=== PATIENT | female | born 1970 | race Hispanic/Latino ===

== ENCOUNTER 2016-12-14 08:56 | Emergency (ER) | payer OTHER ==
[2016-12-14 08:57] VITALS: BMI 40.7
--- NOTE | 2016-12-14 09:28 | ED PDOC ---
Arrival/HPI - General Historian: Patient - History of Present Illness Time/Duration: < week Symptom Onset: Sudden Symptom Course: Intermittent Quality: Stabbing Severity Level: Mild Activities at Onset: Rest <Jenny Sykes - Last Filed: 12/14/16 13:01> <Blade Domingo - Last Filed: 12/14/16 17:21> - General Chief Complaint: Chest Pain Time Seen by Provider: 12/14/16 09:01 - History of Present Illness Narrative History of Present Illness (Text): 12/14/16 09:22 46F w/ PMH sig for HLD and HTN, presents with pain under her left breast x 2 days. Pt was driving when pain started. Pain as constant, variable intensity, sharp/stabbing, radiates left jaw and shoulder. Admits to SOB, diaphoresis, diarrhea x 2 days. Slightly alleviated by Tylenol and lying flat, aggravated by deep inspiration. Denies F & C, N & V, ab pain, back pain, recent URI, other complaints. PMH: HLD, HTN, fibroids PSH: Cholecystectomy All: NKDA SH: Admits to drinking EtOH 1x per week. Denies any tobacco or illicit drug use PMD: Neela (Jenny Sykes) Past Medical History - Provider Review Nursing Documentation Reviewed: Yes - Infectious Disease Hx of Infectious Diseases: None - Reproductive Menopause: No - Cardiac Hx Hypertension: Yes Hx Hypotension: Yes Hx Pacemaker: No - Neurological Hx Paralysis: No - Hematological/Oncological Hx Blood Transfusions: No Hx Blood Transfusion Reaction: No - Musculoskeletal/Rheumatological Hx Musculoskeletal Disorders: No - Psychiatric Hx Emotional Abuse: No Hx Physical Abuse: No Hx Substance Use: No - Surgical History Hx Cholecystectomy: Yes - Anesthesia Hx Anesthesia Reactions: No Hx Malignant Hyperthermia: No - Suicidal Assessment Feels Threatened In Home Enviroment: No <Jenny Sykes - Last Filed: 12/14/16 13:01> Family/Social History - Physician Review Nursing Documentation Reviewed: Yes Family/Social History: No Known Family HX Smoking Status: Never Smoked Hx Alcohol Use: No Hx Substance Use: No <Jenny Sykes - Last Filed: 12/14/16 13:01> Allergies/Home Meds <Jenny Sykes - Last Filed: 12/14/16 13:01> <Blade Domingo - Last Filed: 12/14/16 17:21> Allergies/Adverse Reactions: Allergies No Known Allergies Allergy (Verified 12/14/16 09:18) Home Medications: Home Meds Medication Instructions Recorded Confirmed Aspirin [Ecotrin] 81 mg PO DAILY 06/20/15 12/14/16 Folic Acid 1 mg PO DAILY 06/20/15 12/14/16 Losartan/Hydrochlorothiazide 100 mg PO DAILY 06/20/15 12/14/16 [Losartan-Hctz 100-12.5 mg Tab] Pantoprazole 40 mg PO BID 06/20/15 12/14/16 Cholecalciferol [Vitamin D] 1.25 iu PO QWK 12/14/16 12/14/16 Febuxostat [Uloric] 40 mg PO DAILY 12/14/16 12/14/16 Nebivolol HCl [Bystolic] 2.5 mg PO DAILY 12/14/16 12/14/16 Rosuvastatin Calcium [Crestor] 20 mg PO DAILY 12/14/16 12/14/16 Ursodiol 500 mg PO TID 12/14/16 12/14/16 Review of Systems - Physician Review All systems were reviewed & negative as marked: Yes - Review of Systems Constitutional: Normal. absent: Fevers Eyes: Normal. absent: Vision Changes ENT: Normal. absent: Sore Throat Respiratory: Normal. absent: SOB Cardiovascular: Chest Pain. absent: Normal, Palpitations, DAWSON Gastrointestinal: Normal, Diarrhea. absent: Constipation, Nausea, Vomiting, Hematochezia, Hematemesis Genitourinary Female: Normal. absent: Dysuria Musculoskeletal: Back Pain (low back, chronic). absent: Normal Skin: Other (erythema of skin, likely due to scratching). absent: Normal Neurological: absent: Headache <Jenny Sykes - Last Filed: 12/14/16 13:01> Physical Exam Vital Signs Reviewed: Yes Temperature: Afebrile Blood Pressure: Normal Pulse: Regular Respiratory Rate: Normal Appearance: Positive for: Non-Toxic, Comfortable Pain Distress: None Mental Status: Positive for: Alert and Oriented X 3 - Systems Exam Head: Present: Atraumatic, Normocephalic Extroacular Muscles: Present: EOMI Conjunctiva: Present: Normal Mouth: Present: Moist Mucous Membranes Nose (External): Present: Atraumatic Neck: Present: Normal Range of Motion Respiratory/Chest: Present: Clear to Auscultation, Good Air Exchange, Tender to Palpation (over left lower chest wall under breast tissue). No: Respiratory Distress, Accessory Muscle Use Cardiovascular: Present: Regular Rate and Rhythm, Normal S1, S2. No: Murmurs Abdomen: Present: Normal Bowel Sounds. No: Tenderness, Distention (obese), Peritoneal Signs Breast/Axillary: Present: Erythema (Under left breast). No: Fluctuance, Masses , Nipple Discharge, Swelling Back: Present: Normal Inspection. No: CVA Tenderness Upper Extremity: Present: Normal Inspection. No: Cyanosis, Edema Lower Extremity: Present: Normal Inspection. No: Edema Neurological: Present: GCS=15, CN II-XII Intact, Speech Normal Skin: Present: Warm, Dry. No: Normal Color (Left breast with area of erythema) Psychiatric: Present: Alert, Oriented x 3, Normal Insight, Normal Concentration <Jenny Sykes - Last Filed: 12/14/16 13:01> - Systems Exam Breast/Axillary: Present: Other (coin machine collector supervisor: Lacey Trev) <Blade Domingo - Last Filed: 12/14/16 17:21> Vital Signs Temp Pulse Resp BP Pulse Ox 12/14/16 13:00 81 18 127/81 99 12/14/16 09:14 98.3 F 80 16 117/75 95 Medical Decision Making <Jenny Sykes - Last Filed: 12/14/16 13:01> - Lab Interpretations I have reviewed the lab results: Yes - RAD Interpretation Expediter Clerk: Radiologist - EKG Interpretation Interpreted by ED Physician: Yes Type: 12 lead EKG <Blade Domingo - Last Filed: 12/14/16 17:21> ED Course and Treatment: 12/14/16 09:51 Pt seen/evaluated, case DW ED attending- will order cardiac work up. 12/14/16 11:12 Perc score 0. (Jenny Sykes) 12/14/16 In agreement with resident note, which includes further HPI details. Patient was seen and evaluated with resident, came up with plan and treatment together. (N.R) pt with 3 days of atypical cp. ekg wnl, trop neg with 3 days of pain. exam with mild erythema to 6oclock breast, pt attributes 2/2 tight garment. case discussed with dr neela, as pain aytpical, ekg cxr neg, can f/u outpt. 12/14/16 17:20 (Blade Domingo) - Lab Interpretations Lab Results: 12/14/16 11:00 12/14/16 11:00 Lab Results 12/14/16 11:00: Sodium 141, Potassium 4.7, Chloride 104, Carbon Dioxide 25, Anion Gap 17, BUN 12, Creatinine 0.7, Est GFR ( Amer) > 60, Est GFR (Non- Af Amer) > 60, Random Glucose 89, Calcium 9.1, Total Bilirubin 0.9, AST 47 H, ALT 50, Alkaline Phosphatase 115, Lactate Dehydrogenase 688, Total Creatine Kinase 107, Troponin I < 0.01, Total Protein 7.6, Albumin 4.4, Globulin 3.2, Albumin/Globulin Ratio 1.4 12/14/16 11:00: WBC 7.4 D, RBC 4.61, Hgb 13.3, Hct 40.1, MCV 87.0, MCH 28.9, MCHC 33.2, RDW 14.6 H, Plt Count 335, MPV 8.9, Gran % 65.8, Lymph % (Auto) 23.4 , Scott % (Auto) 8.0 H, Eos % (Auto) 2.4, Baso % (Auto) 0.4, Gran # 4.83, Lymph # 1.7, Scott # 0.6, Eos # 0.2, Baso # 0.03 - RAD Interpretation Radiology Orders: 12/14/16 09:28 CXR [CHEST PORTABLE] [RAD] Stat - Medication Orders Current Medication Orders: Discontinued Medications Ibuprofen (Motrin Tab) 600 mg PO STAT STA Stop: 12/14/16 10:16 Last Admin: 12/14/16 11:24 Dose: 600 mg MAR Pain/Vitals Document 12/14/16 11:24 (Rec: 12/14/16 11:24 [facility] [id number]) Pain Reassessment Is This A Pain ReAssessment? No <Jenny Sykes - Last Filed: 12/14/16 13:01> - PA / CARDIOGRAPH OPERATOR / Resident Statement / has reviewed & agrees with the documentation as recorded. / has examined the patient and agrees with the treatment plan. - Scribe Statement The provider has reviewed the documentation as recorded by the Scribe <Blade Domingo - Last Filed: 12/14/16 17:21> - Scribe Statement Lacey Ayaladua Provider Scribe Attestation: All medical record entries made by the Scribe were at my direction and personally dictated by me. I have reviewed the chart and agree that the record accurately reflects my personal performance of the history, physical exam, medical decision making, and the department course for this patient. I have also personally directed, reviewed, and agree with the discharge instructions and disposition. (Blade Domingo) Disposition/Present on Arrival - Present on Arrival Any Indicators Present on Arrival: No History of DVT/PE: No History of Uncontrolled Diabetes: No Urinary Catheter: No History of Decub. Ulcer: No History Surgical Site Infection Following: None - Disposition Have Diagnosis and Disposition been Completed?: Yes Disposition Time: 13:02 Patient Plan: Discharge <Jenny Sykes - Last Filed: 12/14/16 13:01> <Blade Domingo - Last Filed: 12/14/16 17:21> - Disposition Diagnosis: Chest pain, Rash Disposition: HOME/ ROUTINE Condition: STABLE Discharge Instructions (ExitCare): Chest Pain (ED) Additional Instructions: please follow up with your doctor/specialist. return to er with worsening symptoms or concerns. Referrals: [facility] [Outside] - Follow up with primary Ad Myers MD [Primary Care Provider] - Follow up with primary Forms: [employer] (Persian)
[2016-12-14 09:35] VITALS: TEMP 98.3
[2016-12-14 11:15] LABS: BASO # 0.03 K/mm3 (0.0-2.0); BASO % 0.4 % (0.0-3.0); EOS # 0.2 (0.0-0.7); EOS % 2.4 % (1.5-5.0); GRAN # 4.83 (1.4-6.5); GRAN % 65.8 % (50.0-68.0); HEMATOCRIT 40.1 % (36.0-48.0); LYMPH # 1.7 (1.2-3.4); LYMPH % 23.4 % (22.0-35.0); MEAN CORPUSCULAR HEMOGLOBIN 28.9 pg (25.0-35.0); MEAN CORPUSCULAR HGB CONC 33.2 g/dl (31.0-37.0); MEAN PLATELET VOLUME 8.9 fl (7.0-11.0); MONO # 0.6 (0.1-0.6); RED CELL DISTRIBUTION WIDTH 14.6 % (11.5-14.5); WHITE BLOOD COUNT 7.4 10^3/ul (4.5-11.0)
[2016-12-14 11:27] LABS: ALB/GLOB RATIO 1.4 (1.1-1.8); ALKALINE PHOSPHATASE 115 U/L (38-126); ALT/SGPT 50 U/L (7-56); AST/SGOT 47 U/L (14-36); BILIRUBIN,TOTAL 0.9 mg/dL (0.2-1.3); BLOOD UREA NITROGEN 12 mg/dL (7-21); CALCIUM 9.1 mg/dL (8.4-10.5); CARBON DIOXIDE 25 mmol/L (21-33); CHLORIDE 104 mmol/L (98-107); GFR AFRICAN-AMERICAN > 60; GLUCOSE,RANDOM 89 mg/dL (70-110); POTASSIUM 4.7 mmol/L (3.6-5.0); SODIUM 141 mmol/L (132-148); TOTAL PROTEIN 7.6 g/dL (5.8-8.3)
--- NOTE | 2016-12-14 11:27 | RAD ---
HISTORY: Chest pain COMPARISON: No prior. FINDINGS: LUNGS: No active pulmonary disease. PLEURA: No significant pleural effusion identified, no pneumothorax apparent. CARDIOVASCULAR: Normal. OSSEOUS STRUCTURES: No significant abnormalities. VISUALIZED UPPER ABDOMEN: Normal. OTHER FINDINGS: None. IMPRESSION: No active disease.
[2016-12-14 11:37] LABS: TROPONIN I < 0.01 ng/mL
[2016-12-14 13:02] VITALS: BP 127/81; PULSE 81; RESP 18; O2SAT 99
--- NOTE | 2016-12-14 16:27 | CARD ---
APPROVED REPORT EKG Measurement Heart [id number] [id number] <Conclusion> Normal sinus rhythm PRWP V1 - 4
== END 2016-12-14 13:04 | disposition home or self-care (01) ==
LOC: ED 08:56
DX: R07.9 Chest pain, unspecified (principal); R21 Rash and other nonspecific skin eruption; E78.5 Hyperlipidemia, unspecified; I10 Essential (primary) hypertension

== ENCOUNTER 2018-04-27 11:52 | Emergency (ER) | payer OTHER ==
[2018-04-27 11:52] VITALS: BMI 40.7
[2018-04-27 12:51] VITALS: RESP 18; TEMP 98; O2SAT 98
--- NOTE | 2018-04-27 13:21 | ED PDOC ---
Arrival/HPI - General Chief Complaint: Back Pain Time Seen by Provider: 04/27/18 13:06 Historian: Patient - History of Present Illness Narrative History of Present Illness (Text): 04/27/18 13:17 47 year old female, whose past medical history includes cholecystectomy, hysterectomy, and a gastric sleeve, presents to the emergency department complaining of back pain s/p fall for the past 2 days. Patient states she slipped on ice and fell down approximately 6-7 concrete steps with her back. She tried to stop herself so she also hit her right elbow and right hand during the fall. she notes she has been alternating between Tylenol 650mg and Motrin to treat her pain. Patient denies any head injury or loss of consciousness during or prior to the fall. Patient also denies fevers, chills, headache, dizziness, chest pain, shortness of breath, dyspnea on exertion, cough, abdominal pain, nausea, vomiting, diarrhea, neck pain, or any other complaint. Time/Duration: < week (2 days) Symptom Onset: Gradual Symptom Course: Unchanged Activities at Onset: Significant Context: Slipped Past Medical History - Provider Review Nursing Documentation Reviewed: Yes - Infectious Disease Hx of Infectious Diseases: None - Reproductive Menopause: No - Cardiac Hx Hypertension: Yes Hx Hypotension: Yes Hx Pacemaker: No - Neurological Hx Paralysis: No - Hematological/Oncological Hx Blood Transfusions: No Hx Blood Transfusion Reaction: No - Musculoskeletal/Rheumatological Hx Musculoskeletal Disorders: No - Psychiatric Hx Emotional Abuse: No Hx Physical Abuse: No Hx Substance Use: No - Surgical History Hx Cholecystectomy: Yes - Anesthesia Hx Anesthesia Reactions: No Hx Malignant Hyperthermia: No - Suicidal Assessment Feels Threatened In Home Enviroment: No Family/Social History - Physician Review Nursing Documentation Reviewed: Yes Family/Social History: No Known Family HX Smoking Status: Never Smoked Hx Alcohol Use: No Hx Substance Use: No Allergies/Home Meds Allergies/Adverse Reactions: Allergies No Known Allergies Allergy (Verified 12/14/16 09:18) Home Medications: Home Meds Medication Instructions Recorded Confirmed Aspirin [Ecotrin] 81 mg PO DAILY 06/20/15 12/14/16 Folic Acid 1 mg PO DAILY 06/20/15 12/14/16 Losartan/Hydrochlorothiazide 100 mg PO DAILY 06/20/15 12/14/16 [Losartan-Hctz 100-12.5 mg Tab] Pantoprazole 40 mg PO BID 06/20/15 12/14/16 Cholecalciferol [Vitamin D] 1.25 iu PO QWK 12/14/16 12/14/16 Febuxostat [Uloric] 40 mg PO DAILY 12/14/16 12/14/16 Nebivolol HCl [Bystolic] 2.5 mg PO DAILY 12/14/16 12/14/16 Rosuvastatin Calcium [Crestor] 20 mg PO DAILY 12/14/16 12/14/16 Ursodiol 500 mg PO TID 12/14/16 12/14/16 Review of Systems - Physician Review All systems were reviewed & negative as marked: Yes - Review of Systems Constitutional: absent: Fevers Cardiovascular: absent: Chest Pain Physical Exam - Physical Exam Narrative Physical Exam (Text): 04/27/18 13:17 Constitutional: No acute distress. Head: Normocephalic. Atraumatic. Eyes: PERRL. ENT: Moist mucous membranes. Neck: Supple. Cardiovascular: Regular rate. Chest: No tenderness. Respiratory: Clear to auscultation bilaterally. GI: Soft. Nondistended. right flank tenderness. Back: lumbar paraspinal tenderness, area of ecchymosis Musculoskeletal: No tenderness or swelling of extremities. no tenderness to hand, full ROM or edema to right hand and right elbow Skin: No rash. abrasion to right hand. Neurologic: Alert, no focal deficit. Vital Signs Reviewed: Yes Vital Signs Temp Pulse Resp BP Pulse Ox 04/27/18 12:49 98 F 68 18 128/80 98 Temperature: Afebrile Blood Pressure: Normal Pulse: Regular Respiratory Rate: Normal Appearance: Positive for: Well-Appearing, Non-Toxic, Comfortable Pain Distress: None Mental Status: Positive for: Alert and Oriented X 3 Medical Decision Making ED Course and Treatment: 04/27/18 13:17 Impression: 47 year old female, who presents to the emergency department complaining of right sided back pain. Plan: bed 17 -- Toradol -- Right ribs X-ray -- Reassess and disposition Prior Visits: Notes and results from previous visits were reviewed. Progress Notes: - RAD Interpretation Radiology Orders: 04/27/18 13:15 RIBS RIGHT & PA CHEST [RAD] Stat - Medication Orders Current Medication Orders: Ketorolac Tromethamine (Toradol) 60 mg IM STAT STA Stop: 04/27/18 13:17 - Scribe Statement The provider has reviewed the documentation as recorded by the Tayloribe Maribel Aliciajaki Provider Scribe Attestation: All medical record entries made by the Scribe were at my direction and personally dictated by me. I have reviewed the chart and agree that the record accurately reflects my personal performance of the history, physical exam, medical decision making, and the department course for this patient. I have also personally directed, reviewed, and agree with the discharge instructions and disposition. Disposition/Present on Arrival - Present on Arrival Any Indicators Present on Arrival: No History of DVT/PE: No History of Uncontrolled Diabetes: No Urinary Catheter: No History of Decub. Ulcer: No History Surgical Site Infection Following: None - Disposition Have Diagnosis and Disposition been Completed?: Yes Diagnosis: Back contusion Disposition: HOME/ ROUTINE Disposition Time: 14:47 Patient Plan: Discharge Condition: STABLE Discharge Instructions (ExitCare): Contusion (DC) Prescriptions: Cyclobenzaprine [Cyclobenzaprine HCl] 10 mg PO Q8H #9 tab Referrals: Ad Myers MD [Primary Care Provider] - Follow up with primary Forms: [employer] (Kazakh)
--- NOTE | 2018-04-27 14:30 | RAD ---
Date of service: 04/27/2018 PROCEDURE: Radiographs of the Chest and Right Ribs. HISTORY: rib pain, fall down stairs COMPARISON: None available. TECHNIQUE: Frontal radiograph of the chest and multiple oblique radiographs of the right ribs were obtained. FINDINGS: RIGHT RIBS: No fracture or focal lesion visualized. LUNGS: Clear. PLEURA: No pneumothorax or pleural fluid. CARDIOVASCULAR: Normal cardiac size. No pulmonary vascular congestion. No aortic atherosclerotic calcification present OTHER FINDINGS: None. IMPRESSION: Unremarkable radiographs of the chest and right ribs. No right rib fracture.
[2018-04-27 15:06] VITALS: BP 128/62; PULSE 71
== END 2018-04-27 15:05 | disposition home or self-care (01) ==
LOC: ED 11:52
DX: S20.229A Contusion of unspecified back wall of thorax, initial encounter (principal); W00.1XXA Fall from stairs and steps due to ice and snow, initial encounter
CPT/HCPCS: 71101; 81025; 96372; 99283; J1885